=== PATIENT | female | born 1945 | race Caucasian/White ===

== ENCOUNTER → 2017-01-22 | Day surgery (SDC) | payer MEDICARE, OTHER ==
[~2017-01-22] VITALS: Ht 157.5 cm; Wt 70.9 kg
[~2017-01-22] MED LIST: ASPIRIN EC81 MG PO; CENTRUM SILVER1 EAC4 PO; CIPRO500 MG PO; DILANTIN100 MG PO; FLOMAX0.4 MG PO; GLUCOPHAGE500 MG PO; NEURONTIN300 MG PO; OSCAL + D500 MG PO; PHENOBARBITAL64.8 MG PO; TYLENOL EXTRA500 MG PO; VYTORIN 10-201 EACH PO
--- NOTE | ~2017-01-22 | OR ---
PATIENT'S NAME: ISHMAEL DICKENS [facility] AGE: 71 Y [address] ROOM: [place] [address] LOCATION: [facility] – [place], [place] ADMIT DATE: 01/22/2017 OR/Procedure Report DISCHARGE DATE: FAMILY PHYSICIAN: Doug Gaffney MD ATTENDING PHYSICIAN: Fredo Chanel SURGEON: Ferdo Chanel MD MANAGER RETIREMENT: DATE OF PROCEDURE: 01/22/2017 PREOPERATIVE DIAGNOSES: 1. Large right distal ureteral calculus. 2. Urinary tract infection. POSTOPERATIVE DIAGNOSES: 1. Large right distal ureteral calculus. 2. Urinary tract infection. PROCEDURES PERFORMED: 1. Cystoscopy and right retrograde. 2. Right ureteroscopy. ANESTHESIA: General. INDICATIONS: This is a pleasant and healthy 71-year-old lady, who has been having some right-sided back pain. She thought that she may have hurt her back when she was cleaning her van. Her pain persisted and progressed, prompting a CT scan yesterday. CT scan revealed a 1-cm right distal ureteral calculus with associated hydronephrosis. Her situation was complicated by a probable urinary tract infection. Urine was nitrite positive. She was sent up for intervention. DESCRIPTION OF PROCEDURE: Having obtained her informed consent, the patient was taken to the Operating Room. She was prepped and draped sterilely and in lithotomy position. General anesthesia was administered. A 21-Nepali cystoscope was assembled and guided into the urethra. The course of the urethra was unremarkable. The bladder itself demonstrated inflammatory changes suggestive of a cystitis. We also found a stone at the base of the bladder. It was approximately a centimeter. However, her right orifice was edematous and pinpoint. The left side was unremarkable. Bladder examination was confirmed with a 70-degree lens. Using a three-prong grasper, I extracted the stone lengthwise without having to break it up. As we will see, that was likely our offending stone. PATIENT'S NAME: ISHMAEL DICKENS [facility] AGE: 71 Y [address] ROOM: [place] [id number] LOCATION: [facility] – [place], [place] ADMIT DATE: 01/22/2017 OR/Procedure Report DISCHARGE DATE: FAMILY PHYSICIAN: Doug Gaffney MD ATTENDING PHYSICIAN: Fredo Chanel Fluoroscopy was undertaken. We were hampered by some retained contrast from her CT scan yesterday. She did have intravenous contrast with that. I could see a calcification in the right hemipelvis, in the area of the anticipated right ureter. She has gallbladder clips. With the exception of the density in the right hemipelvis, the retained contrast, and the gallbladder clips, the preliminary survey was unremarkable. Contrast was instilled on the right. She had a dilated ureter down to the orifice. The density that we were seeing on fluoroscopy was a phlebolith. It was outside the urinary tract. I do not see a definite filling defect. I passed a guidewire up the right side. Over that wire, I passed a semi-rigid ureteroscope. I found no stones on careful introduction. We could run the scope all the way up to the UPJ ureteropelvic junction through the dilated system. I was convinced that the stone in her bladder as the one that was obstructing her on yesterday's CT scan. With her associated infection, I considered stenting her. However, her ureter was now wide open, and contrast washes out readily. We will avoid a stent. The bladder was drained. The case was concluded. The patient tolerated the procedure well. BLOOD LOSS: Negligible. SPECIMENS: The stone was sent for analysis. POSTOPERATIVE CONDITION: The patient returned to the outpatient recovery area, awake and in stable condition. FREDO CHANEL MD [facility]/modl /[id number] CC: Doug GALLEGOS MD d: 01/22/17 2228 t: 02/04/17 1011, OPERATIVE SUMMARY
[2017-01-22 11:57] LABS: BASOPHIL % 0.3 %; HEMOGLOBIN 12.7 g/dL (10.0-15.0); IMMATURE GRANULOCYTE % 0.3 %; LYMPHOCYTE # 1.5 K/uL (0.8-4.0); LYMPHOCYTE % 12.3 %; MCH 28.1 pg (27.0-34.0); MCHC 33.4 gm/dL (32.0-36.5); MCV 84.1 fl (83.0-98.0); MONOCYTE # 1.5 K/uL (0.0-1.0); MONOCYTE % 11.7 %; MPV 8.7 fl (9.4-12.4); NEUTROPHIL # (ANC) 9.3 K/uL (1.8-7.8); NEUTROPHIL % 75.4 %; NRBC % 0 /100WBC (0-0.00); PLATELET COUNT 243 K/uL (150-450); RBC 4.52 M/uL (3.50-5.50); RDW-CV 13.1 % (11.9-14.6); WBC 12.4 K/uL (4.0-11.0)
[2017-01-22 12:16] LABS: ALBUMIN 3.6 gm/dL (3.5-5.0); ANION GAP 15.1 (10.0-19.0); CALCIUM 8.7 mg/dL (8.5-10.5); CREATININE 1.1 mg/dL (0.5-1.1); POTASSIUM 4.1 mMol/L (3.7-5.1); TOTAL BILIRUBIN 0.5 mg/dL (0.0-1.5); TOTAL PROTEIN 8.3 g/dL (6.0-8.4)
== END ==
LOC: GPOC 08:00 → GSDC 11:21
PROVIDERS: Urology
PROC: 0TC68ZZ Extirpation of Matter from Right Ureter, Via Natural or Artificial Opening Endoscopic (ICD-10-PCS; principal; 2017-01-22)
PROC: 0TJ98ZZ Inspection of Ureter, Via Natural or Artificial Opening Endoscopic (ICD-10-PCS; 2017-01-22)
DX: N13.6 Pyonephrosis (principal); E11.9 Type 2 diabetes mellitus without complications; G40.909 Epilepsy, unspecified, not intractable, without status epilepticus; E78.1 Pure hyperglyceridemia; E78.00 Pure hypercholesterolemia, unspecified; M81.0 Age-related osteoporosis without current pathological fracture; Z90.710 Acquired absence of both cervix and uterus; Z90.49 Acquired absence of other specified parts of digestive tract; Z98.890 Other specified postprocedural states
CPT/HCPCS: C1769; J1956; J2001; J2405; J2550; J7030; J7120